=== PATIENT | female | born 1980 | race Caucasian/White ===

== ENCOUNTER → 2017-10-14 | Outpatient (CLI) | payer OTHER ==
[~2017-10-14] MED LIST: EFFEXOR XR150 MG PO; NEXIUM40 MG PO; NOHOMEMEDS; NORCO 5/3251 TABLET PO
== END | disposition home or self-care (01) ==
LOC: NUC 09:44
DX: K80.20 Calculus of gallbladder without cholecystitis without obstruction (principal)
CPT/HCPCS: 78226; A9537

== ENCOUNTER 2017-11-12 10:16 | Day surgery (SDC) | payer OTHER ==
[~2017-11-12] VITALS: Ht 166.4 cm; Wt 117.9 kg
[~2017-11-12 10:16] MED LIST changes: +FENOFIBRATE160 M1 PO; +VITAMIN B-12250 MCG PO
[2017-11-12] MEDS ORDERED: TYLENOL EXTRA500 MG PO (10:42)
[2017-11-12 10:55] VITALS: BP 138/81
[2017-11-12 12:35] LABS: METH RESISTANT S AUREUS PCR NEGATIVE (NEGATIVE); PROBE CHECK PASS; SPECIMEN PROCESSING CONTROL PASS
[2017-11-12] MEDS ORDERED: COLACE100 MG PO (13:43)
[2017-11-12] MEDS ORDERED: HYDROCODON-ACE1 EAC7 PO (13:43)
[2017-11-12 14:35] VITALS: BP 122/68
[2017-11-12 15:35] VITALS: BP 140/81
== END 2017-11-12 15:45 | disposition home or self-care (01) ==
LOC: SDC 10:16
PROVIDERS: Surgery
PROC: 0FT44ZZ Resection of Gallbladder, Percutaneous Endoscopic Approach (ICD-10-PCS; principal; 2017-11-12)
DX: K80.10 Calculus of gallbladder with chronic cholecystitis without obstruction (principal); I10 Essential (primary) hypertension; E66.01 Morbid (severe) obesity due to excess calories; Z68.41 Body mass index [BMI] 40.0-44.9, adult; F41.8 Other specified anxiety disorders; E78.2 Mixed hyperlipidemia; E28.2 Polycystic ovarian syndrome; F10.21 Alcohol dependence, in remission
CPT/HCPCS: 87641; 88304; J0330; J1100; J1170; J1885; J2250; J2405; J2710; J3010; S0074

== ENCOUNTER 2018-04-25 22:03 | Emergency (ER) | payer OTHER ==
[~2018-04-25] VITALS: Ht 165.1 cm; Wt 122.7 kg
[~2018-04-25 22:03] MED LIST changes: +COLACE100 MG PO; +HYDROCODON-ACE1 EAC7 PO; +TYLENOL EXTRA500 MG PO
[2018-04-25 23:41] LABS: HEMATOCRIT 39.5 % (36.0-46.0); HEMOGLOBIN 13.7 G/DL (11.9-15.5); MCH 29.9 PG (29.0-34.0); MCHC 34.7 G/DL (30.0-36.0); MCV 86.2 FL (83-99); PLATELET COUNT 325 K/uL (156-360); RBC DIS.WIDTH-CV 13.3 % (11.8-14.6); RBC DIS.WIDTH-SD 41.9 % (39-53); RED BLOOD COUNT 4.58 M/uL (3.80-5.20); WHITE BLOOD COUNT 9.7 K/uL (4.1-10.2)
[2018-04-25 23:56] LABS: ALBUMIN 4.2 g/dL (3.2-4.8); CHLORIDE 110 mEq/L (99-109); POTASSIUM 3.9 mEq/L (3.7-5.4); SODIUM 142 mEq/L (136-147)
[2018-04-25 23:59] LABS: GLUCOSE 106 mg/dL (70-99); TOTAL PROTEIN 7.5 g/dL (6.4-8.3)
[2018-04-26 00:01] LABS: TOTAL BILIRUBIN 0.6 mg/dL (0.0-1.0)
[2018-04-26 00:02] LABS: ALKALINE PHOSPHATASE 89 IU/L (3-129); CREATININE 0.7 mg/dL (0.6-1.3); GFR ESTIMATE (CALCULATED) > 59 mL/min/
[2018-04-26 00:03] LABS: UREA NITROGEN (BUN) 7 mg/dL (9-23)
[2018-04-26 00:04] LABS: AST (GOT) 17 IU/L (2-34)
[2018-04-26 00:05] LABS: ALT (GPT) 23 IU/L (3-49)
[2018-04-26 00:12] LABS: QUANTITATIVE HCG < 4.0 MIU/ML
[2018-04-26 01:00] LABS: APPEARANCE SL.HAZY ((CLEAR)); BILIRUBIN NEGATIVE; BLOOD NEGATIVE; COLOR YELLOW ((YELLOW)); GLUCOSE (STRIP) NEGATIVE; KETONES NEGATIVE; LEUKOCYTES MODERATE; NITRITE NEGATIVE; PROTEIN (STRIP) NEGATIVE; SPECIFIC GRAVITY 1.025 (1.000-1.030); UROBILINOGEN 0.2 MG/DL (0.2-1.0)
[2018-04-26 01:08] LABS: BACTERIA RARE /HPF; EPITHELIAL CELLS RARE /HPF; MUCUS TRACE /LPF; RED BLOOD CELLS 0-5 /HPF (0-5); UCUL ADDED? NO; WHITE BLOOD CELLS 0-5 /HPF (0-5)
[2018-04-26] MEDS ORDERED: LISINOPRIL10 MG PO (02:09)
[2018-04-26] MEDS ORDERED: FLEXERIL10 MG PO (02:09)
[2018-04-26 02:12] VITALS: BP 134/81
== END 2018-04-26 02:36 | disposition home or self-care (01) ==
LOC: EME 22:03
PROVIDERS: Physician Assistant
DX: M54.2 Cervicalgia (principal); I10 Essential (primary) hypertension; R51 Headache; F41.9 Anxiety disorder, unspecified; F32.9 Major depressive disorder, single episode, unspecified; Z90.49 Acquired absence of other specified parts of digestive tract; Z88.5 Allergy status to narcotic agent
CPT/HCPCS: 70450; 80053; 81003; 84702; 85027; 99281; 99284